=== PATIENT | male | born 1980 | race Caucasian/White ===

== ENCOUNTER 2020-10-18 12:08 | Outpatient (REF) | payer OTHER, SELFPAY ==
[2020-10-18 22:41] LABS: Iron 95 ug/dL (65-175)
[2020-10-18 23:06] LABS: Vitamin B12 503 pg/mL (193-986)
[2020-10-19 04:46] LABS: Vitamin D 25 Total 20.5 ng/ml (30-100)
== END 2020-10-18 12:28 ==
LOC: NCHCN 12:08
PROVIDERS: Visit Provider Nurse Practitioner Family
DX: R53.83 Other fatigue (principal)
CPT/HCPCS: 82306; 82607; 83540; 84443